=== PATIENT | female | born 1995 | race Caucasian/White ===

== ENCOUNTER 2023-12-17 10:50 | Inpatient (IN) | payer BC ==
[2023-12-17] MEDS ORDERED: CARBOPROST TROMETHAMINE 250 MCG/ML 1 ML AMP IM PRN (11:29)
[2023-12-17] MEDS ORDERED: TERBUTALINE 1 MG/ML VIAL SQ PRN (11:29)
[2023-12-17] MEDS ORDERED: miSOPROStoL 200 MCG TAB PO PRN (11:29)
[2023-12-17] MEDS ORDERED: METHYLERGONOVINE 0.2 MG/ML 1 ML AMP IM PRN (11:29)
[2023-12-17] MEDS ORDERED: NALBUPHINE 10 MG/ML (10 ML MDV) IV PRN (11:29)
[2023-12-17] MEDS ORDERED: OXYTOCIN 10 UNIT/ML 1 ML VIAL IM PRN (11:29)
[2023-12-17] MEDS ORDERED: TRANEXAMIC 1,000 MG/100ML-NACL 1,000 MG in EMPTY BAG 1 BAG IV PRN (11:29)
[2023-12-17] MEDS: LACTATED RINGERS 1,000 ML IV SCH (12:00)
[2023-12-17] MEDS: AMPICILLIN 2,000 MG in SODIUM CHLORIDE 0.9% 100 ML IVPB STA (12:10)
[2023-12-17 12:23] LABS: Basophils % (A) 0 %; Eosinophils # (A) 0.1 k/uL (0-0.7); Eosinophils % (A) 1 %; HCT 36.3 % (34.0-46.0); HGB 11.7 gm/dL (11.4-16.0); Lymphocytes # (A) 1.4 k/uL (1.0-4.8); Lymphocytes % (A) 11 %; MCH 27.8 pg (25.0-35.0); MCHC 32.2 g/dL (31.0-37.0); MCV 86.1 fL (80.0-100.0); Mean Platelet Volume 8.1; Monocytes # (A) 0.6 k/uL (0-1.0); Monocytes % (A) 5 %; Neutrophils # (A) 10.4 k/uL (1.3-7.7); Neutrophils % (A) 82 %; Platelet Count 332 k/uL (150-450); RBC 4.22 m/uL (3.80-5.40); RDW 14.6 % (11.5-15.5); WBC 12.6 k/uL (3.8-10.6)
[2023-12-17] MEDS: OXYTOCIN 30 UNITS/500 ML NS 30 UNIT in SALINE 1 500ML.BAG IV SCH (12:35)
[2023-12-17] MEDS: AMPICILLIN 1,000 MG in SODIUM CHLORIDE 0.9% 50 ML IVPB SCH (16:10)
[2023-12-17] MEDS: BENZOCAINE/MENTHOL SPRAY 1 GM/SPRAY AEROSOL TOPICAL PRN (16:55)
[2023-12-17] MEDS: LIDOCAINE 0.5% (PF) 5 MG/ML (50 ML SDV) SQ PRN (16:55)
[2023-12-17] MEDS ORDERED: diphenhydrAMINE 25 MG CAP PO PRN (17:14)
[2023-12-17] MEDS ORDERED: LANOLIN CREAM 1 GM TUBE TOPICAL PRN (17:14)
[2023-12-17] MEDS ORDERED: diphenhydrAMINE 50 MG CAP PO PRN (17:14)
[2023-12-17] MEDS ORDERED: SIMETHICONE 80 MG CHEWABLE PO PRN (17:14)
[2023-12-17] MEDS ORDERED: diphenhydrAMINE 50 MG/ML 1 ML VIAL IVP PRN ×2 (17:14)
[2023-12-17] MEDS ORDERED: ZOLPIDEM 5 MG TAB PO PRN (17:14)
[2023-12-17] MEDS ORDERED: HYDROCORTISONE 2.5% RECTAL CREAM 30 GM TUBE RECTAL PRN (17:14)
--- NOTE | 2023-12-17 17:17 | P.HPOB ---
History of Present Illness H&P Date: 12/17/23 Chief Complaint: IUP at 37-1/7 weeks, spontaneous rupture of membranes 20-year-old 1 para 0 at 37-1/7 weeks that presents to labor and delivery with complaints of spontaneous rupture of membranes. Patient states her water broke around around 730 8:00 this morning, clear in nature. Patient was noting contractions at that time therefore presented to labor and delivery. Patient has been receiving routine care with myself. Group beta strep culture was noted to be positive. On blood work this patient is a blood type of A+, rubella status nonimm une, hepatitis B surface and negative, HIV negative, RPR is nonreactive. Review of Systems Constitutional: Denies chills, Denies fatigue, Denies fever Ears, nose, mouth and throat: Denies headache Cardiovascular: Reports leg edema Respiratory: Denies dyspnea Gastrointestinal: Denies constipation, Denies diarrhea, Denies nausea, Denies vomiting Genitourinary: Reports Past Medical History - Past Family History Father Family Medical History: No Reported History Medications and Allergies Home Medications Medication Instructions Recorded Confirmed Type Iron 18 mg PO DAILY 12/17/23 12/17/23 History Omeprazole [PriLOSEC] 10 mg PO DAILY 12/17/23 12/17/23 History Pnv 11/Iron Fum/Folic Acid/Om3 1 each PO DAILY 12/17/23 12/17/23 History [Wesnate Dha Softgel] Allergies Allergy/AdvReac Type Severity Reaction Status Date / Time No Known Allergies Allergy Verified 12/17/23 11:15 Exam Osteopathic Statement: *. No significant issues noted on an osteopathic structural exam other than those noted in the History and Physical/Consult. Intake and Output 12/16/23 12/17/23 12/17/23 22:59 06:59 14:59 Other: Weight 58.967 kg Targeted physical exam is performed this date General is well-nourished well- developed female in no acute distress, breathing is nonlabored, heart has a regular rate and rhythm, abdomen is gravid, heart tones noted to be category 1 she is maliha irregularly, cervical exam per RN is 5/80/-2 Results Result Diagrams: 12/17/23 12:00 Assessment and Plan (1) Term Current Visit: Yes Status: Acute Code(s): Z34.90 - ENCNTR FOR SUPRVSN OF NORMAL , UNSP, UNSP TRIMESTER SNOMED Code(s): 92843870 (2) Spontaneous rupture of membranes Current Visit: Yes Status: Acute Code(s): DVD2493 - SNOMED Code(s): 1697 15506 (3) Positive GBS test Current Visit: Yes Status: Acute Code(s): B95.1 - STREPTOCOCCUS, GROUP B, C AUSING DISEASES CLASSD ELSWHR SNOMED Code(s): 333947710 Plan: 28-year-old G1, P0 at 37-1/7 weeks presents with complaints of spontaneous ruptu re of membranes. Patient is known GBS positive therefore ampicillin will be begun for prophylaxis. Contractions are quite irregular Pitocin augmentation of labor is offered. Options for analgesia are discussed including Nubain, nitrous, epidural. Patient will consider.
--- NOTE | 2023-12-17 17:20 | P.PROBDLV ---
Vaginal Delivery Note - . Vaginal Delivery Note: The patient is a 28-year-old 1, para 0 admitted at 37 1/7 weeks by good dating parameters. She is admitted in labor, SROM with all signs reassuring. On labor and delivery, she made very good progress to complete and [+1] station and then pushed for approximately 2 hours to a normal spontaneous vaginal delivery of a viable 6-2 baby boy with scores of 8 at one minute and 9 at five minutes, delivered in OA presentation. The placenta was delivered spontaneously intact and was grossly normal with a grossly normal with a 3 vessel cord. A first degree vaginal laceration was appreciated and repaired in the usual fashion with 3-0 Rapide after instillation of lidocaine. Estimated blood loss for the case was approximately 100 mL. There were no complications. All sponge, instrument and needle counts were correct. Both mother and infant are resting comfortably in recovery.
[2023-12-17] MEDS: IBUPROFEN 600 MG TAB PO SCH (19:33)
[2023-12-17] MEDS: SENNOSIDES-DOCUSATE SODIUM 1 EACH TAB PO SCH (21:04)
[2023-12-17] MEDS: ACETAMINOPHEN TAB 325 MG TAB PO PRN (22:36)
[2023-12-18] MEDS: PRENATAL VIT-IRON-FOLIC ACID 1 EACH TABLET PO SCH (11:01)
[2023-12-18] MEDS: MEASLES-MUMPS-RUBELLA VACC/PF 12,500 UNIT/0.5 ML VIAL SQ ONE (11:02)
[2023-12-18 16:18] VITALS: BP 118/73; PULSE 82; RESP 16; TEMP 97.6
--- NOTE | 2023-12-19 10:22 | P.DS ---
Providers Date of admission: 12/17/23 11:11 Expected date of discharge: 12/19/23 Attending physician: Audrey Ballesteros Primary care physician: Stated None - Discharge Diagnosis(es) (1) Term Status: Acute (2) Spontaneous rupture of membranes Status: Acute (3) Positive GBS test Status: Acute (4) Status post normal vaginal delivery Status: Acute Hospital Course: This is a 28 yo G1 now P1 that presented to labor and delivery with complaints of SROM, clear in nature. She has been receiving routine care with myself without complication. Full details in this patient please see the dictated history and physical. known GBS positive and she was begun on antibiotics upon admission. She progressed in labor and requested nitrous for pain control. She progressed in labor and progressed to complete. She began pushing and had a normal spontaneous vaginal delivery, viable male delivered 6 pounds 2 ounces. She did well post , on this day #1 she is ambulating and voiding without difficulty. She is tolerating a regular diet without nausea or vomiting. States her pain is well-controlled. She states her lochia is moderate, she is breast-feeding without difficulty. She would like discharge home at 24 hours. Patient Condition at Discharge: Good Plan - Discharge Summary New Discharge Prescriptions: No Action Pnv 11/Iron Fum/Folic Acid/Om3 [Wesnate Dha Softgel] 1 each PO DAILY Omeprazole [PriLOSEC] 10 mg PO DAILY Iron 18 mg PO DAILY Discharge Medication List Iron 18 mg PO DAILY 12/17/23 [History] Omeprazole [PriLOSEC] 10 mg PO DAILY 12/17/23 [History] Pnv 11/Iron Fum/Folic Acid/Om3 [Wesnate Dha Softgel] 1 each PO DAILY 12/17/23 [History] Follow up Appointment(s)/Referral(s): Audrey Ballesteros DO [Doctor of Osteopathic Medicine] - 6 Weeks Patient Instructions/Handouts: Vaginal Delivery (DC), Vaginal Delivery (GEN) Activity/Diet/Wound Care/Special Instructions: No intercourse, tampons or douching. No heavy lifting greater than a gallon of milk. No driving for two weeks. Call with any fever, shakes or chills, with any pain not alleviated by over the counter meds, or with any quesions or concerns. Discharge Disposition: HOME SELF-CARE
== END 2023-12-18 18:30 | disposition home or self-care (01) | DRG 807 ==
LOC: FBPOP 10:50 → 4FBP 11:11
PROVIDERS: ADMIT Obstetrics & Gynecology Obstetrics; ATTEND Obstetrics & Gynecology Obstetrics
PROC: 0HQ9XZZ Repair Perineum Skin, External Approach (ICD-10-PCS; principal; 2023-12-17)
PROC: 10E0XZZ Delivery of Products of Conception, External Approach (ICD-10-PCS; principal; 2023-12-17)
PROC: 3E0134Z Introduction of Serum, Toxoid and Vaccine into Subcutaneous Tissue, Percutaneous Approach (ICD-10-PCS; 2023-12-18)
DX: O99.824 Streptococcus B carrier state complicating childbirth (principal); Z37.0 Single live birth; O70.0 First degree perineal laceration during delivery; Z23 Encounter for immunization; Z3A.37 37 weeks gestation of pregnancy; Z79.899 Other long term (current) drug therapy
CPT/HCPCS: 85025; 86850; 86900; 86901; 90707

== ENCOUNTER → 2024-01-26 | Outpatient (CLI) | payer BC ==
--- NOTE | 2024-01-26 09:07 | USB ---
Reason for Exam: Clinical finding. Technique: Method: Targeted. Findings: The whole breast of the left breast, the axilla of the left breast and the retroareolar of the left breast were scanned. Technique utilized:US breast complete LT Image; Ultrasound imaging of: All 4 quadrants, the retroareolar region and axilla. Hypoechoic lesion at 1:00 11 cm nipple measuring 7 x 7 x 5 mm appears taller than wide. There is some irregular margins along this lesion. Hypoechoic/anechoic area at 3:00 4 similar some nipple with posterior acoustic enhancement possible thin septation. This is favored represent minimally complex cyst. Attention on follow-up and 6 months for this lesion. Lymph node within the left axilla with cortex at the upper limits of normal measuring 3 mm. Overall Assessment: Suspicious, BI-RAD 4 Management: Ultrasound Core Biopsy of the left breast. A clinical breast exam by your physician is recommended on an annual basis and results should be correlated with mammographic findings. This exam should not preclude additional follow-up of suspicious palpable abnormalities. Results were given to the patient verbally at the time of exam. Electronically signed and approved by: Stan Coleman DO
== END | disposition home or self-care (01) ==
LOC: RADUSWWP 07:56
PROVIDERS: ATTEND Family Medicine
DX: O91.13 Abscess of breast associated with lactation (principal)

== ENCOUNTER → 2024-02-04 | Day surgery (SDC) | payer BC ==
--- NOTE | 2024-02-09 08:39 | USB ---
Pathology Description: Location: 1 o'clock. Marker Left Behind. Needle Type: Mammotome Cores: 3 Gauge: 13 The procedure of ultrasound guided core biopsy was explained to the patient. Benefits, alternatives, and risks were discussed. An informed consent was then obtained. The small 6 mm mass at the 1:00 position left breast is identified and targeted for biopsy. We also again noted a mildly thickened but nonenlarged lymph node in the axilla which is probably reactive and can be reassessed in 3 month follow-up. The patient was placed in supine positioning for imaging and for the procedure. The overlying skin was prepped and draped in usual sterile fashion. Lidocaine was used as anesthetic into the skin followed by lidocaine/epinephrine into the subcutaneous tissue up to area of concern in the left breast. Under ultrasound guidance, a 13-gauge vacuum-assisted mammotome biopsy gun was used to obtain 3 core samples. Following this, a HydroMark butterfly clip was left in lesion. The patient tolerated the procedure well without any immediate complication. The patient was kept in the radiology department for short stay after the procedure and then discharged home in stable condition. Postprocedure mammogram not performed at this time due to the patient's age and active . Some differential considerations include fibroadenoma, lactating adenoma, and other etiologies. If worrisome findings on pathology, postprocedure mammogram could be performed at that time. IMPRESSION: Successful, uncomplicated ultrasound guided core biopsy of small 6 mm mass 1:00 left breast in a breast-feeding patient treated recently for mastitis. A mildly thickened but nonenlarged left axillary lymph node is likely reactive. If benign results, this lymph node can be reassessed at a 3 month follow-up. Full pathology results to follow. Pathology Results: Result: Benign, Lymph node. Pathology and radiology were reviewed. Findings are concordant. 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 Overall Assessment: Benign Management: Diagnostic Breast Ultrasound of the left breast in 6 months. Electronically signed and approved by: Hakan Chi M.D. Radiologist
== END ==
LOC: RADUSWWP 07:45
PROVIDERS: ATTEND Family Medicine
DX: N63.20 Unspecified lump in the left breast, unspecified quadrant (principal); N62 Hypertrophy of breast; D24.2 Benign neoplasm of left breast
CPT/HCPCS: 88305; 19083; A4648

== ENCOUNTER → 2024-12-06 | Outpatient (CLI) | payer BC ==
--- NOTE | 2024-12-06 07:52 | USB ---
Reason for Exam: Follow-up at short interval from prior study. Patient History: 02/04/2024, Benign US biopsy breast VAD LT on the left side. Technique: Method: Targeted. Findings: The upper outer quadrant of the left breast and the axilla of the left breast were scanned. Postbiopsy changes seen (the position. No enlarging mass identified. No new lesions seen. Overall Assessment: Benign, BI-RAD 2 Management: Screening Mammogram of both breasts in 1 year. A clinical breast exam by your physician is recommended on an annual basis and results should be correlated with mammographic findings. This exam should not preclude additional follow-up of suspicious palpable abnormalities. Results were given to the patient verbally at the time of exam. [facility], , 12/06/2024 7:48 AM. Electronically signed and approved by: Noble Vora M.D. Radiologis
== END | disposition home or self-care (01) ==
LOC: RADUSWWP 07:02
PROVIDERS: ATTEND Family Medicine
DX: D24.2 Benign neoplasm of left breast (principal)